=== PATIENT | male | born 1980 | race Caucasian/White ===

== ENCOUNTER 2018-04-28 07:37 | Emergency (ER) | payer OTHER ==
[~2018-04-28] VITALS: Ht 190.5 cm; Wt 136.1 kg
[~2018-04-28 07:37] MED LIST: FLEXERIL PO; NOHOMEMEDICATIONS; PERCOCET PO
[2018-04-28] MEDS ORDERED: ADIPEX-P37.5 MG PO (07:44)
[2018-04-28] MEDS ORDERED: ATENOLOL 25 MG25 M1 PO (07:44)
[2018-04-28 08:10] LABS: ABSOLUTE BASOPHILS 0.1 thou/uL (0.0-0.2); ABSOLUTE EOSINOPHILS 0.2 thou/uL (0.0-0.7); ABSOLUTE LYMPHOCYTES 2.4 thou/uL (0.8-5.3); ABSOLUTE MONOCYTES 1.1 thou/uL (0.0-1.2); ABSOLUTE NEUTROPHILS 5.7 thou/uL (1.6-8.1); BASOPHILS 1.1 %; EOSINOPHILS 2.2 %; HEMATOCRIT 47.1 % (42.0-52.0); HEMOGLOBIN 16.2 gm/dL (14.0-18.0); LYMPHOCYTES 24.9 %; MCH 28.8 pg (26.0-34.0); MCHC 34.4 g/dL (28.0-37.0); MCV 83.8 fL (80.0-100.0); MONOCYTES 11.7 %; MPV 8.7 fl. (7.2-11.1); NUCLEATED RBCS 0 /100WBC; PLATELET COUNT* 276 thou/uL (150-400); POLYS 60.1 %; RBC 5.62 mil/uL (4.50-6.00); RDW-CV 14.4 % (10.5-14.5); WBC 9.5 thou/uL (4.0-11.0)
[2018-04-28 08:18] LABS: ANION GAP 10 mmol/L (7-16); BUN 12 mg/dL (7-18); CALCIUM 8.8 mg/dL (8.5-10.1); CHLORIDE 103 mmol/L (98-107); CO2 26 mmol/L (21-32); CREATININE 0.9 mg/dL (0.6-1.3); GLUCOSE 84 mg/dL (70-99); POTASSIUM 4.1 mmol/L (3.5-5.1); SODIUM 139 mmol/L (136-145)
[2018-04-28 08:19] LABS: INR 1.1; PROTIME 11.4 Seconds (9.20-11.50)
[2018-04-28 08:24] LABS: ALBUMIN 3.6 g/dL (3.4-5.0); ALKALINE PHOSPHATASE 71 U/L (46-116); LIPASE 122 U/L (73-393); SGOT 28 U/L (15-37); SGPT 31 U/L (30-65); TOTAL BILIRUBIN 1.1 mg/dL (<0.1-1.0); TOTAL PROTEIN 7.2 g/dL (6.4-8.2); TROPONIN-I LEVEL <0.06 ng/mL (<0.06)
[2018-04-28 10:27] LABS: CHOLESTEROL 240 mg/dL (<200); HDL CHOLESTEROL 35 mg/dL (>40); LDL CHOLESTEROL 187 mg/dL (<100); TC:HDL 6.9 Ratio (Not establshd); TRIGLYCERIDE 92 mg/dL (<150); VLDL 18 mg/dL (<40)
[2018-04-28 10:28] LABS: SERUM ASSESSMENT Clear
[2018-04-28 11:10] VITALS: BP 118/66
--- NOTE | 2018-04-28 16:40 | EKG ---
[place] [address] ELECTROCARDIOGRAM REPORT Name: CELESTINA LORD [facility] [id number] Admission: 04/28/18 Attend Phys: Discharge: 04/28/18 Date of : 80 Report #: [id number] THIS REPORT FOR: //name// [facility] ED Test Date: 2018-04-28 Test Time: 07:41:00 Pat Name: CELESTIAN LORD Department: Room: Gender: M [employer] Estate [employer]: : [id number] Requested By: Ana Sauceda Order Number: [id number] MD: Izaiah Lindo Measurements Intervals [place] Rate: 81 P: 22 LA: 179 QRS: 55 QRSD: 150 T: 15 QT: 383 QTc: 445 Interpretive Statements Sinus rhythm Right bundle branch block No previous ECG available for comparison Electronically Signed On 04-28-2018 16:40:13 EXPLOSIVE SPECIALIST by Izaiah Lindo [email or web address] <ELECTRONICALLY SIGNED> By: Izaiah Lindo MD, [facility] 04/28/18 1640 0741 0741 Izaiah Lindo MD, FACC /EPI
== END 2018-04-28 11:10 | disposition home or self-care (01) ==
LOC: M.ERS 07:37
PROVIDERS: Personal Emergency Response Attendant
DX: R07.89 Other chest pain (principal); R05 Cough; Z88.8 Allergy status to other drugs, medicaments and biological substances

== ENCOUNTER 2020-03-09 13:36 | Emergency (ER) | payer OTHER ==
[~2020-03-09] VITALS: Ht 190.5 cm; Wt 138.3 kg
[~2020-03-09 13:36] MED LIST changes: +ADIPEX-P37.5 MG PO; +ATENOLOL 25 MG25 M1 PO
[2020-03-09] MEDS ORDERED: IBUPROFEN 800800 M1 PO (14:56)
[2020-03-09] MEDS ORDERED: NORCO 5-325 TA1 EAC2 PO (14:56)
[2020-03-09 15:20] VITALS: BP 149/97
== END 2020-03-09 15:20 | disposition home or self-care (01) ==
LOC: M.ERS 13:36
DX: S93.402A Sprain of unspecified ligament of left ankle, initial encounter (principal); X50.1XXA Overexertion from prolonged static or awkward postures, initial encounter; Y93.89 Activity, other specified; Y92.89 Other specified places as the place of occurrence of the external cause; Y99.8 Other external cause status